=== PATIENT | male | born 1965 | race Caucasian/White ===

== ENCOUNTER 2019-01-06 14:33 | Emergency (ER) | payer MEDICARE, SELFPAY ==
[~2019-01-06] VITALS: Ht 185.4 cm; Wt 91.0 kg
[2019-01-06 15:02] LABS: BASOPHILS # (AUTO) 0.02 x10^3/uL (0-0.1); BASOPHILS % (AUTO) 0 % (0-1); EOSINOPHILS # (AUTO) 0.12 x10^3/uL (0-0.4); EOSINOPHILS % (AUTO) 2 % (1-7); LYMPHOCYTES # (AUTO) 1.97 x10^3/uL (1-3.4); LYMPHOCYTES % (AUTO) 29 % (22-44); MD NO; MEAN CORPUSCULAR HEMOGLOBIN 29.5 pg (27.5-34.5); MEAN CORPUSCULAR VOLUME 89.2 fL (81-97); MEAN PLATELET VOLUME 8.6 fL (7.4-10.4); MONOCYTES # (AUTO) 0.58 x10^3/uL (0.2-0.8); MONOCYTES % (AUTO) 9 % (2-9); NEUTROPHILS # (AUTO) 4.14 x10^3/uL (1.8-6.8); NEUTROPHILS % (AUTO) 61 % (42-75); PLATELET COUNT 165 x10^3/uL (130-400); RED BLOOD COUNT 5.12 x10^6/uL (4.38-5.82); RED CELL DISTRIBUTION WIDTH 13.6 % (9.4-14.8)
--- NOTE | 2019-01-06 15:04 | NUR ---
Pt arrives to ED with EMS and MOST team, report MOST team [place] and was worried pt was unable to care for self. MOST team concerned pt did not have any food at his house and was naked upon their arrival. Pt ambulatory, skin wpd, report from EMS pt has appointment with [facility] in January with MD Kumar for his schizophrenia. Pt appears well nourised, tangental speech, follows commands, calm, cooperative.
[2019-01-06 15:10] LABS: MICROSCOPIC NOT IND
[2019-01-06 15:11] LABS: ALBUMIN 4.3 g/dL (3.4-5.0); ANION GAP 8 mmol/L (5-15); CHLORIDE 111 mmol/L (98-107)
[2019-01-06 15:12] LABS: CULTURE INDICATED? NO
[2019-01-06 15:21] LABS: ALANINE AMINOTRANSFERASE 38 U/L (12-78); ALKALINE PHOSPHATASE 81 U/L (45-117); BILIRUBIN,TOTAL 1.3 mg/dL (0.2-1.0)
[2019-01-06 15:23] LABS: AMPHETAMINE SCREEN, URINE Negative (Negative); BARBITURATE SCREEN, URINE Negative (Negative); BENZODIAZEPINE SCREEN, URINE Negative (Negative); CANNABINOID SCREEN, URINE Negative (Negative); COCAINE SCREEN, URINE Negative (Negative); METHADONE SCREEN, URINE Negative (Negative); OPIATE SCREEN, URINE Negative (Negative)
[2019-01-06 15:23] LABS: ACETAMINOPHEN < 2 mcg/mL (10-30); SALICYLATE LEVEL < 1.7 mg/dL (2.8-20.0)
[2019-01-06 15:43] LABS: FREE T4 (FREE THYROXINE) 1.76 ng/dL (0.76-1.46)
--- NOTE | 2019-01-06 15:56 | NUR ---
break rn: SW down in ED to assess pt, MD order for telepsych evaluation ordered. Pt in bed, NAD, no needs at this time.
[2019-01-06 15:57] VITALS: BP 132/89
--- NOTE | 2019-01-06 16:05 | NUR ---
break rn: [id number] set up in room for psych evaluation.
--- NOTE | 2019-01-06 16:52 | NUR ---
Extensive conversation with sister Bharati who lives in [place], Bharati concerned pt is unsafe at home, putting out cigarettes on his couch and unaware of dangers of that. Sister also given social work manager phone number for further consult, and sister verbalized understanding of plan of care.
--- NOTE | 2019-01-06 16:53 | NUR ---
Pt has been accepted to [facility]
[2019-01-06] MEDS ORDERED: ZIPRASIDONE 20 MG INJ IM ONE ×2 (17:42→18:00)
--- NOTE | 2019-01-06 17:57 | NUR ---
Pt upset about having to remove clothing and having his belongings taken away. 3[facility] supervisor home energy consultant down to assist in helping pt safely get up stairs, pt increasingly aggitated, medicated per emar, 5 rights observed. Pt agrees to sit in wheelchair for transport to
[2019-01-07] MEDS ORDERED: LISI-167 PO (02:05)
[2019-01-07] MEDS ORDERED: ATOR20TA86 PO (07:36)
== END 2019-01-06 18:01 ==
LOC: ED 15:12
DX: F25.0 Schizoaffective disorder, bipolar type (principal); Z72.9 Problem related to lifestyle, unspecified
CPT/HCPCS: 36415; 80053; 80307; 80329; 81003; 83735; 84100; 84439; 84443; 84481; 85025; 96372; 99285; J3486; G0480